=== PATIENT | female | born 1970 | race Two or more races ===

== ENCOUNTER 2023-01-22 13:00 | Emergency (ER) | payer OTHER, SELFPAY ==
[2023-01-22] VITALS (7 sets, daily range): BP systolic 135–176; BP diastolic 75–118; PULSE 71–84; RESP 16–18; TEMP 36.6; O2SAT 91–95; BMI 33.3
--- NOTE | 2023-01-22 13:27 | ED_ITS ---
Documented by User: Josy Barron PA-C 01/22/23 16:41 HPI - Seizure General: Chief Complaint: Seizure Stated Complaint: post seizure Time Seen by Provider: 01/22/23 13:12 Source: patient Mode of arrival: EMS Limitations: no limitations History of Present Illness: HPI Narrative: 52-year-old female presents to the ER today via EMS after a seizure. Patient reports she was at a restaurant this morning when she had the seizure. Patient did not feel this 1 coming on. She saw a neurologist this last week because she has been having increasing seizures. Patient reports they did some med adjustments that are working to adjust medications to control his seizures. Patient has had several seizures in the last few weeks. Patient reports she had 1 night before last during her sleep and bit her tongue pretty good. Patient reports that stop bleeding however when she had a seizure today it really irritated it. Patient reports she feels like she has a bad headache right now and overall not well but this is how she feels after most of her seizures. Patient reports they have been unable to find a cause at this time for seizures. Review of Systems General: Reports: 10 or more systems reviewed and unremarkable except in HPI and below Physical Exam Const: COMMON NORMALS: patient oriented x3, no limitations, healthy appearing, alert and well nourished HENMT: COMMON NORMALS: normocephalic, atraumatic, external ears normal, TM's normal bilaterally, Normal nasal mucous membranes and turbinates present and moist oral mucous membranes HEAD & SCALP: normocephalic and atraumatic NOSE: Normal nasal mucous membranes and turbinates present EXTERNAL EAR: Yes external ears normal TYMPANIC MEMBRANE: TM's normal bilaterally MOUTH: tongue abnormal laceration (closed and no active bleeding, L side of tongue) Eye: COMMON NORMALS: Equal, round and reactive pupils present PUPIL: Yes Equal, round and reactive pupils present Lymph: LYMPHATIC: no lymphadenopathy noted Resp: COMMON NORMALS: normal respiratory effort, No retractions and clear to auscultation bilaterally AUSCULTATION: clear to auscultation bilaterally Cardio: COMMON NORMALS: regular rate, regular rhythm and No murmurs present (Cardio) RATE: regular rate RHYTHM: regular rhythm GI: COMMON NORMALS: Normal to inspection, nondistended, normoactive bowel sounds present, Soft to palpation and non-tender PALPATION: Yes Soft to palpation Extremity: COMMON NORMALS: normal to inspection and full ROM Neuro: COMMON NORMALS: patient oriented x3 SENSORIUM/ORIENTATION: Yes alert Psych: COMMON NORMALS: mental status grossly normal, Normal thought process present and cooperative THOUGHT PROCESS: Normal thought process present Skin: COMMON NORMALS: no rashes or lesions noted GENERAL SKIN EXAM: no rashes or lesions noted Course ED course: Presents to the ER via EMS after a seizure while at a restaurant just prior to arrival. Per patient, these have been going on for a while now and she is being worked up by a neurologist in [place]. Patient reports she is had several in the last several days however they have been adjusting her medications. Patient reports otherwise she has felt good. She does not feel well while in the ER today but reports that is pretty typical after she has had a seizure. She did bite her tongue night before last however we irritated it when she had the seizure prior to arrival. We will go ahead and get basic lab work at this time. Patient does have a seizure history and is currently being worked up. Vital Signs: Vital signs: Vital Signs Temperature 97.9 F 01/22/23 13:07 Pulse Rate 74 01/22/23 16:39 Respiratory Rate 16 01/22/23 16:39 Blood Pressure 135/80 01/22/23 16:39 Pulse Oximetry 94 01/22/23 16:39 Oxygen Delivery Me thod Room Air 01/22/23 16:39 MDM - Seizure MDM Narrative Medical decision making narrative: CBC and CMP mostly unremarkable. Slightly elevated white count but patient noted to have UTI. We will treat UTI. Patient should continue seizure medication. Contact neurologist on Wednesday or Wednesday and let them know of continued seizures. She saw them last week and they are working to adjust medications. Advised patient not to drive. Push fluids. Follow-up for any new or worsening symptoms. For the tongue abrasion/laceration recommended warm salt water gargles. Patient verbalized understanding and was in agreement with the treatment plan. Lab Data 01/22/23 13:29 01/22/23 13:29 Labs: Laboratory Results WBC 11.3 10^3/uL (4.0-10.0) H 01/22/23 13: RBC 3.60 10^6/uL (4.1-5.3) L 01/22/23 13:29 Hgb 12.2 g/dL (11.5-15.3) 01/22/23 13: Hct 38.3 % (37.0-47.0) 01/22/23 13: MCV 106.4 fl (81-99) H 01/22/23 13: MCH 33.9 pg (28.0-34.0) 01/22/23 13: MCHC 31.9 g/dL (30.0-36.0) 01/22/23 13: RDW 13.0 % (12.1-15.1) 01/22/23 13: Plt Count 243 10^3/cmm (130-400) 01/22/23 13: MPV 9.9 fL (7.4-10.4) 01/22/23 13: Neut % (Auto) 55.5 % 01/22/23 13: Lymph % (Auto) 35.8 % 01/22/23 13: [place] % (Auto) 6.7 % 01/22/23 13: Eos % (Auto) 0.8 % 01/22/23 13: Baso % (Auto) 0.3 % 01/22/23 13: Neut # (Auto) 6.25 10^3/uL (1.8-7.7) 01/22/23 13: Lymph # (Auto) 4.0 10^3/uL (0.8-4.8) 01/22/23 13: [place] # (Auto) 0.8 10^3/uL (0.2-0.9) 01/22/23 13: Eos # (Auto) 0.1 10^3/uL (0.0-0.8) 01/22/23 13: Baso # (Auto) 0.0 10^3/uL (0.0-0.1) 01/22/23 13: Nucleated RBC % (auto) 0 % 01/22/23 13: Nucleated RBCs # 0.0 /100WBC 01/22/23 13: Sodium 138 mmol/L (136-145) 01/22/23 13: Potassium 4.2 mmol/L (3.5-5.1) 01/22/23 13: Chloride 101 mmol/L (98-107) 01/22/23 13:29 Carbon Dioxide 17 mmol/L (22-29) L 01/22/23 13:29 Anion Gap 24.2 (5-19) H 01/22/23 13:29 BUN 10 mg/dL (6-20) 01/22/23 13: Creatinine 0.8 mg/dL (0.5-0.9) 01/22/23 13:29 GFR Calculation 75.6 mL/min (90-130) L 01/22/23 13:29 Glucose 111 mg/dL (65-115) 01/22/23 13:29 Calculated Osmolality 286 mOsm/kg (285-295) 01/22/23 13: Calcium 9.0 mg/dL (8.5-10.5) 01/22/23 13:29 Urine Color Dark yellow (Yellow) 01/22/23 14:51 Urine Appearance Cloudy (CLEAR) A 01/22/23 14:51 Urine pH 6.5 (5-7) 01/22/23 14:51 Ur Specific [place] 1.020 (1.005-1.030) 01/22/23 14:51 Urine Protein 1+ (Negative) H 01/22/23 14:51 Urine Glucose (UA) Norm (Normal) 01/22/23 14:51 Urine Ketones Negative (Negative) 01/22/23 14:51 Urine Blood 2+ (Negative) H 01/22/23 14:51 Urine Nitrate Positive (Negative) H 01/22/23 14:51 Urine Bilirubin Neg (Negative) 01/22/23 14:51 Urine Urobilinogen Norm mg/dL (Negative) 01/22/23 14:51 Ur Leukocyte Esterase Trace (Negative) H 01/22/23 14:51 Urine RBC 0-4 /hpf (0-2) H 01/22/23 14:51 Urine WBC 5-10 /hpf (0-5) H 01/22/23 14:51 Ur Squamous Epith Cells 0-4 /hpf (0-5) H 01/22/23 14:51 Amorphous Sediment Not Reportable 01/22/23 14:51 Urine Bacteria 1+ /hpf (NONE) H 01/22/23 14:51 Critical Care Time Critical Care Time: Critical Care Time: No Discharge Plan Discharge Patient Disposition: Home Clinical Impression: Generalized seizure, UTI (urinary tract infection) Condition: Stable Discharge Orders: Discharge ED (Routine); Ordered 01/22/23 Ordered By: Josy Barron Discharge Diet: Usual diet Discharge Activity: Resume usual activity Patient Instructions: Opioid Safety, Pain Management Activity Restrictions/Additional Instructions: Avoid driving. Contact neurologist on Wednesday to notify them of increased seizure activity. Continue seizure medication as previously prescribed. Push fluids. Warm salt water gargles recommended to keep tongue abrasion clean. Return to ER with new or worsening symptoms. Coding Level of Care Code ED Elementary Educator for Chg Fwd Documented by User: Junior Landis DO 02/01/23 07:34 HPI - Seizure General: Chief Complaint: Seizure Stated Complaint: post seizure Time Seen by Provider: 01/22/23 13:12 Course Vital Signs: Vital signs: Vital Signs Temperature 97.9 F 01/22/23 13:07 Pulse Rate 74 01/22/23 16:39 Respiratory Rate 16 01/22/23 16:39 Blood Pressure 135/80 01/22/23 16:39 Pulse Oximetry 94 01/22/23 16:39 Oxygen Delivery Me thod Room Air 01/22/23 16:39 MDM - Seizure MDM Narrative Medical decision making narrative: CBC and CMP mostly unremarkable. Slightly elevated white count but patient n oted to have UTI. We will treat UTI. Patient should continue seizure medication. Contact neurologist on Wednesday or Wednesday and let them know of continued seizures. She saw them last week and they are working to adjust medications. Advised patient not to drive. Push fluids. Follow-up for any new or worsening symptoms. For the tongue abrasion/laceration recommended warm salt water gargles. Patient verbalized understanding and was in agreement with the treatment plan. Chart reviewed and patient discussed with midlevel. Agree with assessment and plan. Lab Data 01/22/23 13:29 01/22/23 13:29 Labs: Laboratory Results WBC 11.3 10^3/uL (4.0-10.0) H 01/22/23 13:29 RBC 3.60 10^6/uL (4.1-5.3) L 01/22/23 13: Hgb 12.2 g/dL (11.5-15.3) 01/22/23 13: Hct 38.3 % (37.0-47.0) 01/22/23 13: MCV 106.4 fl (81-99) H 01/22/23 13: MCH 33.9 pg (28.0-34.0) 01/22/23 13: MCHC 31.9 g/dL (30.0-36.0) 01/22/23 13: RDW 13.0 % (12.1-15.1) 01/22/23 13: Plt Count 243 10^3/cmm (130-400) 01/22/23 13: MPV 9.9 fL (7.4-10.4) 01/22/23 13: Neut % (Auto) 55.5 % 01/22/23 13: Lymph % (Auto) 35.8 % 01/22/23 13:29 [place] % (Auto) 6.7 % 01/22/23 13: Eos % (Auto) 0.8 % 01/22/23 13: Baso % (Auto) 0.3 % 01/22/23 13: Neut # (Auto) 6.25 10^3/uL (1.8-7.7) 01/22/23 13: Lymph # (Auto) 4.0 10^3/uL (0.8-4.8) 01/22/23 13: [place] # (Auto) 0.8 10^3/uL (0.2-0.9) 01/22/23 13: Eos # (Auto) 0.1 10^3/uL (0.0-0.8) 01/22/23 13: Baso # (Auto) 0.0 10^3/uL (0.0-0.1) 01/22/23 13: Nucleated RBC % (auto) 0 % 01/22/23 13: Nucleated RBCs # 0.0 /100WBC 01/22/23 13: Sodium 138 mmol/L (136-145) 01/22/23 13:29 Potassium 4.2 mmol/L (3.5-5.1) 01/22/23 13:29 Chloride 101 mmol/L (98-107) 01/22/23 13: Carbon Dioxide 17 mmol/L (22-29) L 01/22/23 13:29 Anion Gap 24.2 (5-19) H 01/22/23 13:29 BUN 10 mg/dL (6-20) 01/22/23 13:29 Creatinine 0.8 mg/dL (0.5-0.9) 01/22/23 13:29 GFR Calculation 75.6 mL/min (90-130) L 01/22/23 13:29 Glucose 111 mg/dL (65-115) 01/22/23 13: Calculated Osmolality 286 mOsm/kg (285-295) 01/22/23 13: Calcium 9.0 mg/dL (8.5-10.5) 01/22/23 13:29 Urine Color Dark yellow (Yellow) 01/22/23 14:51 Urine Appearance Cloudy (CLEAR) A 01/22/23 14:51 Urine pH 6.5 (5-7) 01/22/23 14:51 Ur Specific [place] 1.020 (1.005-1.030) 01/22/23 14:51 Urine Protein 1+ (Negative) H 01/22/23 14:51 Urine Glucose (UA) Norm (Normal) 01/22/23 14:51 Urine Ketones Negative (Negative) 01/22/23 14:51 Urine Blood 2+ (Negative) H 01/22/23 14:51 Urine Nitrate Positive (Negative) H 01/22/23 14:51 Urine Bilirubin Neg (Negative) 01/22/23 14:51 Urine Urobilinogen Norm mg/dL (Negative) 01/22/23 14:51 Ur Leukocyte Esterase Trace (Negative) H 01/22/23 14:51 Urine RBC 0-4 /hpf (0-2) H 01/22/23 14:51 Urine WBC 5-10 /hpf (0-5) H 01/22/23 14:51 Ur Squamous Epith Cells 0-4 /hpf (0-5) H 01/22/23 14:51 Amorphous Sediment Not Reportable 01/22/23 14:51 Urine Bacteria 1+ /hpf (NONE) H 01/22/23 14:51 Discharge Plan Discharge Patient Disposition: Home Clinical Impression: Generalized seizure, UTI (urinary tract infection) Condition: Stable Discharge Orders: Discharge ED (Routine); Ordered 01/22/23 Ordered By: Josy Barron Discharge Diet: Usual diet Discharge Activity: Resume usual activity Patient Instructions: Opioid Safety, Pain Management Activity Restrictions/Additional Instructions: Avoid driving. Contact neurologist on Wednesday to notify them of increased seizure activity. Continue seizure medication as previously prescribed. Push fluids. Warm salt water gargles recommended to keep tongue abrasion clean. Return to ER with new or worsening symptoms. Coding Level of Care Code ED Elementary Educator for Андрей Carlos
[2023-01-22 13:38] LABS: Basophils % 0.3 %; Eosinophils # 0.1 10^3/uL (0.0-0.8); Eosinophils % 0.8 %; Hematocrit 38.3 % (37.0-47.0); Hemoglobin 12.2 g/dL (11.5-15.3); Lymphocytes % 35.8 %; Mean Corpuscular HGB Conc 31.9 g/dL (30.0-36.0); Mean Corpuscular Hemoglobin 33.9 pg (28.0-34.0); Mean Corpuscular Volume 106.4 fl (81-99); Mean Platelet Volume 9.9 fL (7.4-10.4); Monocytes # 0.8 10^3/uL (0.2-0.9); Monocytes % 6.7 %; Neutrophils # 6.25 10^3/uL (1.8-7.7); Neutrophils % 55.5 %; Nucleated Red Blood Cells % 0 %; Platelet Count 243 10^3/cmm (130-400); White Blood Count 11.3 10^3/uL (4.0-10.0)
[2023-01-22 13:58] LABS: Anion Gap 24.2 (5-19); Blood Urea Nitrogen 10 mg/dL (6-20); Carbon Dioxide 17 mmol/L (22-29); Chloride 101 mmol/L (98-107); Glomerular Filtration Rate 75.6 mL/min (90-130); Glucose 111 mg/dL (65-115); Osmolality Calculated 286 mOsm/kg (285-295); Potassium 4.2 mmol/L (3.5-5.1); Sodium 138 mmol/L (136-145)
[2023-01-22 16:01] LABS: Add Urine Microscopic? YES; Bilirubin Urine Neg (Negative); Blood Urine 2+ (Negative); Glucose Urine UA Norm (Normal); Ketones Urine Negative (Negative); Leukocyte Esterase Urine Trace (Negative); Nitrate Urine Positive (Negative); Protein Urine 1+ (Negative); Urine Appearance Cloudy (CLEAR); Urine Color Dark Yellow (Yellow); Urobilinogen Urine Norm (Negative); pH Urine 6.5 (5-7)
[2023-01-22 16:02] LABS: Bacteria Urine 1+ /hpf; RBC Urine 0-4 /hpf (0-2); Squamous Epithelial Cell Urine 0-4 /hpf (0-5)
--- NOTE | 2023-01-29 10:01 | DCPLANNER ---
comsec manager called patient due to no primary care physician - no answer at this time.
== END 2023-01-22 16:40 | disposition home or self-care (01) ==
PROVIDERS: Emergency Provider Physician Assistant
DX: G40.409 Other generalized epilepsy and epileptic syndromes, not intractable, without status epilepticus (principal); N39.0 Urinary tract infection, site not specified
CPT/HCPCS: 80048; 81001; 85025; 99283